=== PATIENT | female | born 1990 | race Caucasian/White ===

== ENCOUNTER 2018-02-21 00:33 | Emergency (ER) | payer OTHER ==
[2018-02-21] MEDS ORDERED: DEXAMETHASONE 4 MG TAB PO ONE (02:42)
--- NOTE | 2018-02-21 02:44 | EDPHY ---
H & P Stated Complaint: Swollen R eyelid, bedbug bites. Time Seen by Provider: 02/21/18 02:30 HPI/ROS: HPI The patient presents with right eyelid edema which has been present for the last 1 day. She slept at a hostel in [place] last night on her way back to [place]. She thought that she saw some bedbugs while she was there. She was sleeping on her right side and noticed some redness today which has gotten progressively worse. This is caused her right eyelid to become very swollen and now it is shot at rest. She denies any vision changes, redness of her eye. Her eyelid is very itchy. She does not have any other lesions. REVIEW OF SYSTEMS Constitutional: No fever, no chills. Eyes: No discharge. ENT: No sore throat. Cardiovascular: No chest pain, no palpitations. Respiratory: No cough, no shortness of breath. Gastrointestinal: No abdominal pain, no vomiting. Genitourinary: No hematuria. Musculoskeletal: No back pain. Skin: No rashes. Neurological: No headache. 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[employer], previously worked at the [employer], thus has become familiar with bed bugs PHYSICAL General Appearance: Alert, no distress Eyes: Right eyelid is edematous and erythematous, Pupils equal and round no pallor or injection ENT, Mouth: Mucous membranes moist Respiratory: Breathing comfortably Neurological: A&O, moves all extremities Skin: Warm and dry, right forehead with 2-3 scattered erythematous papules Extremities: symmetrical Psychiatric: Patient is oriented X 3, there is no agitation Source: Patient Exam Limitations: No limitations - Personal History LMP (Females 10-55): Now Current Tetanus/Diphtheria Vaccine: Yes Current Tetanus Diphtheria and Acellular Pertussis (TDAP): Yes - Medical/Surgical History Hx Asthma: No Hx Chronic Respiratory Disease: No Hx Diabetes: No Hx Cardiac Disease: No Hx Renal Disease: No Hx Cirrhosis: No Hx Alcoholism: No Hx HIV/AIDS: No Hx Splenectomy or Spleen Trauma: No Other PMH: pmh- anxiety. - Social History Smoking Status: Never smoked Constitutional: Initial Vital Signs Temperature (C) 36.6 C 02/21/18 00:40 Heart Rate 79 02/21/18 00:40 Respiratory Rate 16 02/21/18 00:40 Blood Pressure 102/76 02/21/18 00:40 O2 Sat (%) 100 02/21/18 00:40 O2 Delivery Mode Room Air Allergies/Adverse Reactions: No Known Allergies Allergy (Unverified 07/28/14 11:40) Home Medications: Medication Instructions Recorded FLUoxetine [Prozac] 10 mg PO DAILY 07/28/14 Valium 5 MG (*) 02/21/18 Medical Decision Making Differential Diagnosis: 27-year-old healthy female presents with right eyelid edema for the last 1 day after sleeping in a hostile while traveling in seeing bed bugs. I suspect she has several bed bug bites to her periorbital area causing this eyelid edema and redness. She does not have any changes in her vision. Other possibilities include allergic reaction, less likely cellulitis. I will treat her here with a dose of Decadron. She will continue to take Benadryl. I have encouraged her to take ibuprofen and use ice packs. She is happy with this plan and we will discharge her from the emergency department. Departure - Departure Disposition: Home, Routine, Self-Care Clinical Impression: Eyelid edema, Bed bug bite Condition: Good Instructions: Insect Bite or Sting (ED), Bed Bugs (ED) Additional Instructions: I recommend you take Benadryl 25 mg every 6 hr. You can substitute hydroxyzine at night for Benadryl as this may help with year rest. I also recommend use ibuprofen 400 mg every 6 hr to help decrease inflammation. In addition, you should use an ice pack as much as possible. You should also try to sleep with the head of the bed elevated. Return to the emergency department if your worse in any way. Referrals: NONE *PRIMARY CARE P,. [Primary Care Provider] - As per Instructions
[2018-02-21 03:02] VITALS: BP 122/72
== END 2018-02-21 03:02 | disposition home or self-care (01) ==
DX: H02.843 Edema of right eye, unspecified eyelid (principal)